=== PATIENT | female | born 1990 | race Caucasian/White ===

== ENCOUNTER → 2018-12-27 | Outpatient (CLI) | payer MEDICAID, OTHER ==
[2018-12-27 20:04] LABS: HCG, SERUM QUALITATIVE NEGATIVE (NEGATIVE)
== END ==
LOC: M LAB 18:48
PROVIDERS: ATTEND Physician Assistant
DX: R10.9 Unspecified abdominal pain (principal); N64.4 Mastodynia

== ENCOUNTER 2019-05-17 11:00 | Emergency (ER) | payer MEDICAID, MEDICARE, OTHER ==
[~2019-05-17] VITALS: Ht 172.7 cm; Wt 72.7 kg
[2019-05-17] MEDS ORDERED: ESCI20TA (11:08)
[2019-05-17 11:48] LABS: BASO % 0.4 % (0.0-1.0); EOS # 0.3 10^3/uL (0.0-0.5); EOS % 4.5 % (0.0-3.0); HEMATOCRIT 40.8 % (36.0-47.0); HEMOGLOBIN 13.4 g/dl (12.0-15.5); LYMPH % 29.6 % (24.0-44.0); MEAN CORPUSCULAR HEMOGLOBIN 31.7 pg (27.0-33.0); MEAN CORPUSCULAR HGB CONC 32.8 g/dl (32.0-36.5); MEAN CORPUSCULAR VOLUME 96.5 fl (80.0-96.0); MONO # 0.4 10^3/uL (0.0-0.8); NEUTROPHILS % 59.2 % (36.0-66.0); PLATELET COUNT, AUTOMATED 267 10^3/uL (150-450); RED BLOOD COUNT 4.23 10^6/uL (4.00-5.40); WHITE BLOOD COUNT 6.7 10^3/uL (4.0-10.0)
[2019-05-17 14:41] VITALS: BP 136/78
== END 2019-05-17 14:40 | disposition home or self-care (01) ==
LOC: M ED 11:00
DX: N92.6 Irregular menstruation, unspecified (principal); F33.9 Major depressive disorder, recurrent, unspecified; Z79.899 Other long term (current) drug therapy

== ENCOUNTER → 2019-05-28 | Outpatient (REF) | payer MEDICARE, MEDICAID ==
[~2019-05-28] MED LIST: ESCI20TA
[2019-05-28 17:25] LABS: ALBUMIN 3.7 GM/DL (3.2-5.2); ALT/SGPT 22 U/L (12-78); BILIRUBIN,TOTAL 0.6 MG/DL (0.2-1.0); BLOOD UREA NITROGEN 9 MG/DL (7-18); CALCIUM LEVEL 8.7 MG/DL (8.5-10.1); CARBON DIOXIDE LEVEL 30 MEQ/L (21-32); CHLORIDE LEVEL 104 MEQ/L (98-107); CREATININE FOR GFR 0.85 MG/DL (0.55-1.30); FREE T4 1.01 NG/DL (0.76-1.46); GLOMERULAR FILTRATION RATE > 60.0 (>60); GLUCOSE, FASTING 72 MG/DL (70-100); SODIUM LEVEL 139 MEQ/L (136-145); TOTAL PROTEIN 7.1 GM/DL (6.4-8.2)
== END ==
LOC: M SFHCLERA 11:11
PROVIDERS: ATTEND Nurse Practitioner Family
DX: R63.5 Abnormal weight gain (principal)
CPT/HCPCS: 80053; 81025; 84439; 84443; G0463

== ENCOUNTER → 2019-06-05 | Outpatient (CLI) | payer MEDICARE, MEDICAID ==
--- NOTE | 2019-06-05 15:52 | REP ---
REASON: Pelvic pain. Secondary to the patient's complaints of pelvic pain bilateral ovarian Doppler was obtained. There are no priors for comparison. Transvesical imaging only was obtained. The reason for the lack of transvaginal imaging is unknown to me. Pelvic ultrasonography is more sensitive with the addition of transvaginal imaging. The uterus measures 8.8 x 4.5 x 5.4 cm. The parenchymal echo pattern is within normal limits. The endometrial echo complex is smooth and unremarkable appearing measuring 6 mm in its greatest thickness. There is no free fluid in the cul-de-sac. The right ovary measures 2.6 x 1.7 x 2.3 cm and is within normal limits with an RI of 0.64. The left ovary measures 2.2 x 2.9 x 2.7 cm and is within normal limits with an RI 0.54. There is a dominant follicle seen in the left ovary with a maximal dimension of 2 cm. This has a few low level echoes within it likely representing either a small hemorrhagic follicle or involuting follicle. IMPRESSION: Probable involuting and/or hemorrhagic dominant left ovarian follicle. This could have been better imaged with transvaginal imaging. If clinically relevant obtain a followup examination with transvaginal imaging. Electronically Signed by Dash Leon DO 06/06/2019 10:43 A
== END ==
LOC: M RAD 14:07
PROVIDERS: ATTEND Nurse Practitioner Family
DX: R10.2 Pelvic and perineal pain (principal)

== ENCOUNTER 2019-10-19 17:26 | Emergency (ER) | payer MEDICAID, MEDICARE, SELFPAY ==
[~2019-10-19] VITALS: Ht 172.7 cm; Wt 81.9 kg
[2019-10-19 19:09] VITALS: BP 109/65
--- NOTE | 2019-10-20 08:58 | REP ---
CHEST: Two views. There is no evidence of acute infiltrate. No pleural effusion is seen. The heart is normal in size. The mediastinal silhouette is unremarkable. The visualized osseous structures are intact. IMPRESSION: No acute pulmonary disease. Electronically Signed by Andreas Castelan MD 10/20/2019 06:25 P
== END 2019-10-19 19:10 | disposition home or self-care (01) ==
LOC: M ED 17:26
DX: J06.9 Acute upper respiratory infection, unspecified (principal); F32.9 Major depressive disorder, single episode, unspecified; F41.9 Anxiety disorder, unspecified; Z91.013 Allergy to seafood

== ENCOUNTER 2019-12-03 12:48 | Emergency (ER) | payer MEDICAID, MEDICARE ==
[~2019-12-03] VITALS: Ht 172.7 cm; Wt 76.8 kg
[2019-12-03] MEDS ORDERED: medical marijuana (12:55)
[2019-12-03 14:02] VITALS: BP 120/78
== END 2019-12-03 14:15 | disposition home or self-care (01) ==
LOC: M ED 12:48
DX: F41.0 Panic disorder [episodic paroxysmal anxiety] (principal); F60.3 Borderline personality disorder; Z79.899 Other long term (current) drug therapy; Z91.013 Allergy to seafood

== ENCOUNTER → 2019-12-08 | Outpatient (CLI) | payer MEDICARE, MEDICAID ==
[~2019-12-08] MED LIST changes: +medical marijuana
== END ==
LOC: M LABSMTC 10:50
PROVIDERS: ATTEND Family Medicine
DX: Z11.59 Encounter for screening for other viral diseases (principal); Z20.818 Contact with and (suspected) exposure to other bacterial communicable diseases

== ENCOUNTER 2019-12-26 11:15 | Inpatient (IN) | payer MEDICARE, MEDICAID ==
[~2019-12-26 11:15] MED LIST changes: -ESCI20TA; +ESCI20TA PO; -medical marijuana; +medical marijuana INH
[2019-12-26 13:17] LABS: HEMOGLOBIN 15.2 g/dl (12.0-15.5); MEAN CORPUSCULAR HEMOGLOBIN 30.9 pg (27.0-33.0); MEAN CORPUSCULAR HGB CONC 32.3 g/dl (32.0-36.5); MEAN CORPUSCULAR VOLUME 95.5 fl (80.0-96.0); PLATELET COUNT, AUTOMATED 355 10^3/uL (150-450); RED BLOOD COUNT 4.92 10^6/uL (4.00-5.40); WHITE BLOOD COUNT 10.3 10^3/uL (4.0-10.0)
[2019-12-26 13:49] LABS: HCG, SERUM QUALITATIVE NEGATIVE (NEGATIVE)
[2019-12-26 14:03] LABS: ACETAMINOPHEN LEVEL < 2.0 UG/ML (10.0-30.0); ALBUMIN 4.3 GM/DL (3.2-5.2); ALT/SGPT 26 U/L (12-78); BILIRUBIN,DIRECT 0.1 MG/DL (0.0-0.2); BILIRUBIN,TOTAL 0.6 MG/DL (0.2-1.0); BLOOD UREA NITROGEN 9 MG/DL (7-18); CALCIUM LEVEL 9.5 MG/DL (8.5-10.1); CARBON DIOXIDE LEVEL 28 MEQ/L (21-32); CHLORIDE LEVEL 106 MEQ/L (98-107); CREATININE FOR GFR 0.85 MG/DL (0.55-1.30); ETHYL ALCOHOL (ETHANOL) < 0.003 % (0.000-0.010); GLOMERULAR FILTRATION RATE > 60.0 (>60); GLUCOSE, FASTING 89 MG/DL (70-100); POTASSIUM SERUM 4.1 MEQ/L (3.5-5.1); SALICYLATE LEVEL 5.7 MG/DL (5.0-30.0); SODIUM LEVEL 140 MEQ/L (136-145); THYROID STIMULATING HORMONE 0.909 uIU/ML (0.358-3.740); TOTAL PROTEIN 8.1 GM/DL (6.4-8.2)
[2019-12-26 14:08] LABS: AMPHETAMINES LEVEL URINE NEGATIVE (NEGATIVE); BARBITURATES URINE NEGATIVE (NEGATIVE); BENZODIAZEPINES URINE NEGATIVE (NEGATIVE); CANNABINOIDS URINE POSITIVE (NEGATIVE); COCAINE METABOLITE URINE NEGATIVE (NEGATIVE); METHADONE URINE NEGATIVE (NEGATIVE); OPIATES URINE NEGATIVE (NEGATIVE); PHENCYCLIDINE URINE NEGATIVE (NEGATIVE)
[2019-12-26] MEDS ORDERED: PREN1CHW6 PO (16:59)
[2019-12-26] MEDS ORDERED: ALPRAZolam 0.5 MG TAB PO ONE (17:15)
[2019-12-26] MEDS ORDERED: MOM 30ML SUSPENSION UDC PO PRN (19:15)
[2019-12-26] MEDS ORDERED: MAALOX 30 ML SUSP *UDC PO PRN (19:15)
[2019-12-26] MEDS ORDERED: OLANZapine ORAL DISINTEGRATING TAB 5MG PO PRN (19:15)
[2019-12-26] MEDS ORDERED: ACETAMINOPHEN TAB 650MG DOSE (2X325MG) PO PRN (19:15)
[2019-12-26] MEDS ORDERED: chlorproMAZINE INJ 50MG/2ML AMP (J3230) IM STA (19:45)
[2019-12-26] MEDS ORDERED: diphenhydrAMINE 50MG/ML VIAL (J1200) IM STA (19:45)
--- NOTE | 2019-12-26 19:48 | ED PDOC ---
Post-Departure Follow-Up Informed at this time that pt. becoming agitated. Called [facility] but they said they have 3 pts up there, and are not yet ready to take this pt. I therefore ordered thorazine (low dose)/benadryl to be given. ADE BURGOS DO December 26, 2019 19:48
[2019-12-26] MEDS ORDERED: ESCITALOPRAM OXALATE 10 MG TAB (LEXAPRO) PO SCH (21:00)
[2019-12-26 22:07] VITALS: BP 118/75
[2019-12-26] MEDS ORDERED: traZODone 50 MG TAB PO PRN (23:15)
[2019-12-27 06:08] VITALS: BP 126/64
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
--- NOTE | 2019-12-27 10:43 | MHDSPDOC ---
[facility] Discharge Summary Discharge Summary DATE OF ADMISSION: December 26, 2019 at 19:03 DATE OF DISCHARGE: 12/27/19 Please see h/p for dx and clinical course Vital Signs/I&Os Vital Signs Date Time Temp Pulse Resp B/P (MAP) Pulse Ox O2 Delivery O2 Flow Rate FiO2 12/27/19 06:08 98.6 65 12 126/64 (84) 98 Room Air Laboratory Data Labs 24H Laboratory Tests 2 12/26/19 12:56: Nucleated Red Blood Cells % (auto) 0.0, Anion Gap 6L, Glomerular Filtration Rate > 60.0, Calcium Level 9.5, Total Bilirubin 0.6, Direct Bilirubin 0.1, Aspartate Amino Transf (AST/SGOT) 13, Alanine Aminotransferase (ALT/SGPT) 26, Alkaline Phosphatase 110, Total Protein 8.1, Albumin 4.3, Albumin/Globulin Ratio 1.13, Thyroid Stimulating Hormone (TSH) 0.909, Human Chorionic Gonadotropin, Qual NEGATIVE, Salicylates Level 5.7, Urine Opiates Screen NEGATIVE, Urine Methadone Screen NEGATIVE, Acetaminophen Level < 2.0L, Urine Barbiturates Screen NEGATIVE, Urine Phencyclidine Screen NEGATIVE, Urine Amphetamines Screen NEGATIVE, Urine Benzodiazepines Screen NEGATIVE, Urine Cocaine Metabolite Screen NEGATIVE, Urine Cannabinoids Screen POSITIVEH, Ethyl Alcohol Level < 0.003 CBC/BMP Laboratory Tests 12/26/19 12:56 Medications Scheduled Escitalopram Oxalate (Escitalopram Oxalate) 20 Mg Tablet, 20 MG PO QHS, (Reported) Vit37/Iron/Folic Acid (Prenata Chewable Tablet) 1 Each Tab.chew, 1 CHW PO DAILY, (Reported) Scheduled PRN [medical marijuana] , 1 DOSE INH BID PRN for ANXIETY, (Reported) Allergies Coded Allergies: shellfish derived (Verified Allergy, Unknown, itching, 10/19/19) ASHWINI WEEKS DO December 27, 2019 10:43
--- NOTE | 2019-12-27 15:43 | HPEPDOC ---
[facility] Medical History & Physical Date of Admission December 27, 2019 Date of Service: December 27, 2019 Attending Physician: SYLWIA ARZOLA MD History and Physical CHIEF COMPLAINT: Admitted to inpatient mental health unit for suicidal ideation HISTORY OF PRESENT ILLNESS: 29-year-old female with past medical history of anxiety and depression, was admitted to inpatient with her health unit for depression/suicidal ideation. Patient reports being frustrated with her current situation regarding inability to find outpatient psychiatric assistance, became aggravated and texture her case aide that she had enough and didn't want to deal with this anymore. It was interpreted as if she was thinking about hurting herself, please were called and she was brought to the hospital. She denies having any suicidal or homicidal ideation. She is being discharged from inpatient to health unit later today. She has no complaints at this time, denies any shortness of breath, chest pain, nausea, vomiting, abdominal pain, diarrhea or constipation. 10 point review of system is negative except for above MEDICAL HISTORY: 1. Anxiety and depression. PAST SURGICAL HISTORY: 1. Tonsillectomy. 2. Breast augmentation. SOCIAL HISTORY: Denies smoking. Social alcohol use. Medical marijuana use FAMILY HISTORY: Father had skin cancer ALLERGIES: Please see below. HOME MEDICATIONS: Please see below. PHYSICAL EXAMINATION: VITAL SIGNS: Please see below. GENERAL: No distress HEENT: Normocephalic, atraumatic, moist mucous membranes NECK: Supple CARDIOVASCULAR EXAMINATION: S1, S2, no murmurs RESPIRATORY EXAMINATION: Clear to auscultation, no wheezing ABDOMINAL EXAMINATION: Soft, nontender, nondistended, positive bowel sounds EXTREMITIES: Range of motion intact SKIN: No rash NEUROLOGICAL EXAMINATION: Alert and oriented 3, no focal deficits PSYCHIATRIC EXAMINATION: Calm and cooperative LABORATORY DATA: See below. MICROBIOLOGY: Please see below. ASSESSMENT: 29-year-old female with past medical history of anxiety and depression, admitted to inpatient at health unit for depression/suicidal ideation. PLAN: 1. Depression/suicidal ideation. Management as per primary team Patient has no active medical issues at this time, please reconsult as needed. Vital Signs Vital Signs Date Time Temp Pulse Resp B/P (MAP) Pulse Ox O2 Delivery O2 Flow Rate FiO2 12/27/19 06:08 98.6 65 12 126/64 (84) 98 Room Air Home Medications Scheduled Escitalopram Oxalate (Escitalopram Oxalate) 20 Mg Tablet, 20 MG PO QHS Vit37/Iron/Folic Acid (Prenata Chewable Tablet) 1 Each Tab.chew, 1 CHW PO DAILY Scheduled PRN [medical marijuana] , 1 DOSE INH BID PRN for ANXIETY Allergies Coded Allergies: shellfish derived (Verified Allergy, Unknown, itching, 10/19/19) A-FIB/CHADSVASC A-FIB History Current/History of A-Fib/PAF?: No SYLWIA ARZOLA MD December 27, 2019 15:43
== END 2019-12-27 14:46 | disposition home or self-care (01) | DRG 882 ==
LOC: M ED 11:15 → M ED INP 19:03 → M PSY 21:25
PROVIDERS: ADMIT Psychiatry & Neurology Addiction Medicine; ATTEND Psychiatry & Neurology Addiction Medicine
DX: F43.20 Adjustment disorder, unspecified (principal); F60.89 Other specific personality disorders; Z91.5 Personal history of self-harm; Z62.810 Personal history of physical and sexual abuse in childhood; Z79.899 Other long term (current) drug therapy; Z91.013 Allergy to seafood

== ENCOUNTER → 2020-04-14 | Outpatient (CLI) | payer MEDICAID ==
[~2020-04-14] MED LIST changes: +PREN1CHW6 PO
--- NOTE | 2020-05-12 15:10 | ECGEPIP ---
[facility] Test Date: 2020-04-14 Pat Name: DORINDA GONZALES Department: Room: - Gender: Female Machine Sizer: MELODY : 1990 Requested By: Maritza Shah Order Number: [id number] Reading MD: Eda Lewis Measurements Intervals [place] Rate: 61 P: 53 VA: 142 QRS: 69 QRSD: 86 T: 2 QT: 376 QTc: 381 Interpretive Statements SINUS RHYTHM WITH SINUS ARRHYTHMIA NORMAL ECG ST T ABN SEE SCANNED DOWNTIME REPORT
== END ==
LOC: M EKG 13:58
PROVIDERS: ATTEND Nurse Practitioner Psychiatric/Mental Health
DX: F90.0 Attention-deficit hyperactivity disorder, predominantly inattentive type (principal)

== ENCOUNTER → 2020-12-21 | Outpatient (CLI) | payer MEDICAID ==
[~2020-12-21] MED LIST changes: -ESCI20TA PO; +ESCI20TA16 PO
== END ==
LOC: M WUC 15:44
PROVIDERS: ATTEND Nurse Practitioner Family
DX: N92.6 Irregular menstruation, unspecified (principal)